=== PATIENT | male | born 2000 | race Caucasian/White ===

== ENCOUNTER 2021-03-08 20:14 | Emergency (ER) | payer OTHER ==
[2021-03-08] MEDS ORDERED: Boostrix 0.5 ML (Tdap) VIAL ONE (20:47)
[2021-03-08] MEDS ORDERED: Lidocaine 1% 20 ML MDV ONE (21:03)
[2021-03-08] MEDS ORDERED: Triple Antibiotic Oint 1 GM Packet ONE (21:44)
== END 2021-03-08 21:54 | disposition home or self-care (01) ==
LOC: MADERS 20:14
DX: S61.210A Laceration without foreign body of right index finger without damage to nail, initial encounter (principal); W22.8XXA Striking against or struck by other objects, initial encounter
CPT/HCPCS: 12001; 90471; 90715